=== PATIENT | male | born 1965 | race Caucasian/White ===

== ENCOUNTER → 2016-11-05 | Outpatient (CLI) | payer BC ==
[2016-11-05 08:46] LABS: MEAN CORPUSCULAR HEMOGLOBIN 32.3 pg (27.0-33.0); MEAN CORPUSCULAR HGB CONC 34.8 g/dl (32.0-36.5); MEAN CORPUSCULAR VOLUME 92.8 fl (80.0-96.0); RED CELL DISTRIBUTION WIDTH 13.2 % (11.5-14.5); WHITE BLOOD COUNT 8.3 K/mm3 (4.0-10.0)
[2016-11-05 09:20] LABS: ALBUMIN 4.1 GM/DL (3.2-5.2); ALBUMIN/GLOBULIN RATIO 1.24 (1.00-1.93); ALKALINE PHOSPHATASE 86 U/L (45-117); ALT/SGPT 43 U/L (12-78); ANION GAP 9 MEQ/L (8-16); AST/SGOT 28 U/L (15-37); BILIRUBIN,TOTAL 0.5 MG/DL (0.2-1.0); BLOOD UREA NITROGEN 16 MG/DL (7-18); CALCIUM LEVEL 8.7 MG/DL (8.5-10.1); CARBON DIOXIDE LEVEL 25 MEQ/L (21-32); CHLORIDE LEVEL 109 MEQ/L (98-107); CHOLESTEROL LEVEL 171 MG/DL (<200); CREATININE FOR GFR 0.91 MG/DL (0.70-1.30); GLOMERULAR FILTRATION RATE > 60.0 (>56); GLUCOSE, FASTING 107 MG/DL (70-105); POTASSIUM SERUM 4.2 MEQ/L (3.5-5.1); SODIUM LEVEL 143 MEQ/L (136-145); TOTAL PROTEIN 7.4 GM/DL (6.4-8.2); TRIGLYCERIDES LEVEL 226 MG/DL (<150)
--- NOTE | 2016-11-05 09:40 | REP ---
Chest two views HISTORY: Hypertension Comparison: 04/18/2005 The lungs are clear. The heart is normal in size. The pulmonary vasculature is normal in appearance. The bony structure is intact. IMPRESSION: No acute disease. Signed by Iggy Dalton MD 11/05/2016 09:31 A
--- NOTE | 2016-11-05 09:52 | REP ---
CERVICAL SPINE, EIGHT VIEWS: HISTORY: Hypertension. The cervical spine is visualized from C1 to the C6-7 level in the lateral radiographs. There is no acute fracture or subluxation. The C3-4 through C6-7 intervertebral discs are decreased in height consistent with disc degeneration. Osteophytes are present on C3-7. There is narrowing of the C5 and 6 neural foramina secondary to uncinate process hypertrophy. IMPRESSION: Degenerative change as described above. Signed by Iggy Dalton MD 11/05/2016 09:57 A
--- NOTE | 2016-11-05 09:54 | REP ---
BILATERAL SHOULDERS: HISTORY: Hypertension. RIGHT SHOULDER, THREE VIEWS: There is no acute fracture or dislocation. The joint spaces are normal in appearance. An osteophyte is present on the inferior glenoid. IMPRESSION: Degenerative change as described above. LEFT SHOULDER, FOUR VIEWS: There is no acute fracture or dislocation. The joint spaces are normal in appearance. IMPRESSION: There is no acute fracture or dislocation. Signed by Iggy Dalton MD 11/05/2016 09:57 A
--- NOTE | 2016-11-05 12:12 | ECGEPIP ---
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
== END ==
LOC: M LAB 08:07
PROVIDERS: ATTEND Family Medicine
DX: M50.30 Other cervical disc degeneration, unspecified cervical region (principal); I10 Essential (primary) hypertension; J44.9 Chronic obstructive pulmonary disease, unspecified
CPT/HCPCS: 36415; 71020; 72052; 73030; 80053; 80061; 83036; 84443; 85027; 93005; G0103

== ENCOUNTER → 2018-04-04 | Outpatient (CLI) | payer BC ==
[2018-04-04 07:15] LABS: HEMATOCRIT 50.1 % (42.0-52.0); HEMOGLOBIN 16.8 g/dl (13.5-17.5); MEAN CORPUSCULAR HEMOGLOBIN 31.5 pg (27.0-33.0); MEAN CORPUSCULAR HGB CONC 33.5 g/dl (32.0-36.5); MEAN CORPUSCULAR VOLUME 93.8 fl (80.0-96.0); PLATELET COUNT, AUTOMATED 234 10^3/uL (150-450); RED BLOOD COUNT 5.34 10^6/uL (4.30-6.10); WHITE BLOOD COUNT 8.5 10^3/uL (4.0-10.0)
[2018-04-04 07:39] LABS: HEMOGLOBIN A1c 6.1 %
[2018-04-04 07:48] LABS: ALBUMIN 3.9 GM/DL (3.2-5.2); ALT/SGPT 32 U/L (12-78); BILIRUBIN,TOTAL 0.3 MG/DL (0.2-1.0); BLOOD UREA NITROGEN 15 MG/DL (7-18); CALCIUM LEVEL 8.5 MG/DL (8.5-10.1); CARBON DIOXIDE LEVEL 26 MEQ/L (21-32); CHLORIDE LEVEL 106 MEQ/L (98-107); CHOLESTEROL LEVEL 150 MG/DL (<200); CREATININE FOR GFR 0.92 MG/DL (0.70-1.30); GLOMERULAR FILTRATION RATE > 60.0 (>56); GLUCOSE, FASTING 118 MG/DL (70-100); HDL CHOLESTEROL 24 MG/DL (>40); LDL CHOLESTEROL 57 MG/DL (<100); NON-HDL-C 126 MG/DL; POTASSIUM SERUM 4.5 MEQ/L (3.5-5.1); PROSTATIC SPECIFIC AG MONITOR 0.65 NG/ML (< 4.00); SODIUM LEVEL 140 MEQ/L (136-145); TOTAL PROTEIN 6.8 GM/DL (6.4-8.2); TRIGLYCERIDES LEVEL 343 MG/DL (<150)
[2018-04-04 09:28] LABS: TESTOSTERONE 179 NG/DL (241-827)
== END ==
LOC: M LAB 06:46
PROVIDERS: ATTEND Family Medicine
DX: E03.9 Hypothyroidism, unspecified (principal); I10 Essential (primary) hypertension

== ENCOUNTER → 2018-08-09 | Outpatient (CLI) | payer BC ==
[2018-08-09 06:50] LABS: HEMATOCRIT 50.9 % (42.0-52.0); HEMOGLOBIN 17.2 g/dl (13.5-17.5); MEAN CORPUSCULAR HEMOGLOBIN 31.6 pg (27.0-33.0); MEAN CORPUSCULAR HGB CONC 33.8 g/dl (32.0-36.5); MEAN CORPUSCULAR VOLUME 93.4 fl (80.0-96.0); PLATELET COUNT, AUTOMATED 236 10^3/uL (150-450); RED BLOOD COUNT 5.45 10^6/uL (4.30-6.10); WHITE BLOOD COUNT 8.8 10^3/uL (4.0-10.0)
[2018-08-09 07:12] LABS: HEMOGLOBIN A1c 5.7 %
--- NOTE | 2018-08-09 09:19 | REP ---
CERVICAL SPINE, EIGHT VIEWS: HISTORY: Osteoarthritis. COMPARISON: 11/05/2016. The cervical spine is visualized from C1 to the C6-7 level in the lateral radiographs. There is no acute fracture or subluxation. The C3-4 through C6-7 intervertebral discs are decreased in height consistent with disc degeneration. Osteophytes are present on C3-7. There is narrowing of the C4-6 neural foramina secondary to uncinate process hypertrophy. There is loss of the normal lordotic curve. IMPRESSION: Degenerative change as described above. Electronically Signed by Iggy Dalton MD 08/09/2018 09:21 A
[2018-08-09 09:23] LABS: ALBUMIN 3.6 GM/DL (3.2-5.2); ALT/SGPT 46 U/L (12-78); BILIRUBIN,TOTAL 0.4 MG/DL (0.2-1.0); BLOOD UREA NITROGEN 15 MG/DL (7-18); CALCIUM LEVEL 8.1 MG/DL (8.5-10.1); CARBON DIOXIDE LEVEL 27 MEQ/L (21-32); CHLORIDE LEVEL 109 MEQ/L (98-107); CHOLESTEROL LEVEL 196 MG/DL (<200); CHOLESTEROL RISK RATIO 9.333 (<5); CREATININE FOR GFR 0.85 MG/DL (0.70-1.30); GLOMERULAR FILTRATION RATE > 60.0 (>56); GLUCOSE, FASTING 127 MG/DL (70-100); HDL CHOLESTEROL 21 MG/DL (>40); NON-HDL-C 175 MG/DL; POTASSIUM SERUM 4.5 MEQ/L (3.5-5.1); PROSTATIC SPECIFIC AG MONITOR 0.46 NG/ML (< 4.00); SODIUM LEVEL 141 MEQ/L (136-145); TRIGLYCERIDES LEVEL 1112 MG/DL (<150)
[2018-08-09 11:36] LABS: TESTOSTERONE 166 NG/DL (241-827)
== END ==
LOC: M LAB 06:28
PROVIDERS: ATTEND Family Medicine
DX: I10 Essential (primary) hypertension (principal); E03.9 Hypothyroidism, unspecified; N40.0 Benign prostatic hyperplasia without lower urinary tract symptoms; M50.31 Other cervical disc degeneration, high cervical region; M50.321 Other cervical disc degeneration at C4-C5 level; M50.322 Other cervical disc degeneration at C5-C6 level; M50.323 Other cervical disc degeneration at C6-C7 level

== ENCOUNTER 2018-11-03 06:22 | Emergency (ER) | payer BC ==
[~2018-11-03] VITALS: Ht 180.3 cm; Wt 105.1 kg
[2018-11-03] MEDS ORDERED: NS 1,000 ML IV ONE (07:00)
[2018-11-03] MEDS ORDERED: KETOROLAC 30 MG/ML VIAL (J1885) IV ONE (07:00)
[2018-11-03 07:43] LABS: BASO # 0.1 10^3/uL (0.0-0.2); BASO % 0.3 % (0.0-1.0); EOS % 0.1 % (0.0-3.0); HEMATOCRIT 48.5 % (42.0-52.0); HEMOGLOBIN 16.7 g/dl (13.5-17.5); LYMPH # 1.4 10^3/uL (1.5-4.5); LYMPH % 8.4 % (24.0-44.0); MEAN CORPUSCULAR HEMOGLOBIN 31.6 pg (27.0-33.0); MEAN CORPUSCULAR HGB CONC 34.4 g/dl (32.0-36.5); MEAN CORPUSCULAR VOLUME 91.7 fl (80.0-96.0); MONO # 1.3 10^3/uL (0.0-0.8); MONO % 7.4 % (0.0-5.0); NEUTROPHILS # 14.1 10^3/uL (1.8-7.7); NEUTROPHILS % 83.1 % (36.0-66.0); PLATELET COUNT, AUTOMATED 227 10^3/uL (150-450); RED BLOOD COUNT 5.29 10^6/uL (4.30-6.10)
[2018-11-03 07:51] LABS: ALBUMIN 3.5 GM/DL (3.2-5.2); ALT/SGPT 23 U/L (12-78); BILIRUBIN,DIRECT 0.4 MG/DL (0.0-0.2); BILIRUBIN,TOTAL 1.2 MG/DL (0.2-1.0); BLOOD UREA NITROGEN 11 MG/DL (7-18); CALCIUM LEVEL 9.3 MG/DL (8.5-10.1); CARBON DIOXIDE LEVEL 26 MEQ/L (21-32); CHLORIDE LEVEL 103 MEQ/L (98-107); CREATININE FOR GFR 0.88 MG/DL (0.70-1.30); GLOMERULAR FILTRATION RATE > 60.0 (>56); GLUCOSE, FASTING 125 MG/DL (70-100); SODIUM LEVEL 138 MEQ/L (136-145); TOTAL PROTEIN 6.9 GM/DL (6.4-8.2)
[2018-11-03 07:52] LABS: LIPASE 97 U/L (73-393)
[2018-11-03] MEDS ORDERED: ISOVUE-370 76% 100ML VIAL (Q9967) As Ordered ONE (07:55)
[2018-11-03] MEDS ORDERED: CIPROFLOXACIN 500 MG TAB PO ONE (08:30)
[2018-11-03] MEDS ORDERED: metroNIDAZOLE (FLAGYL) 500 MG TAB PO ONE (08:30)
[2018-11-03] MEDS ORDERED: CIPR-249 PO (09:24)
[2018-11-03] MEDS ORDERED: FLAG500T PO (09:24)
[2018-11-03 09:36] VITALS: BP 117/65
--- NOTE | 2018-11-03 10:51 | REP ---
CT of the abdomen and pelvis with IV contrast, without bowel contrast: There are no comparisons. Studies performed for bilateral lower quadrant pain. The visualized lung rios are unremarkable. There is hepato steatosis. The hepatic parenchyma is otherwise unremarkable. The gallbladder, pancreas and spleen are unremarkable. The adrenals, kidneys and abdominal aorta are unremarkable. There is no retroperitoneal adenopathy or mass. There are scattered diverticula in the descending colon and sigmoid colon. In the proximal sigmoid colon. There is pericolonic phlegmon and a few tiny collections of extraluminal air / gas, compatible with contained perforation, suggestive of acute diverticulitis. There is no pneumoperitoneum. There is no ascites. Pelvis: The terminal ileum and appendix are unremarkable. There is no ascites or adenopathy. The bladder is unremarkable. Impression: Acute diverticulitis of the proximal sigmoid colon. No pneumoperitoneum or ascites. Hepato steatosis. Electronically Signed by Armin Degroot MD 11/03/2018 09:32 A
== END 2018-11-03 09:39 | disposition home or self-care (01) ==
LOC: M ED 06:22
DX: K57.92 Diverticulitis of intestine, part unspecified, without perforation or abscess without bleeding (principal); B96.7 Clostridium perfringens [C. perfringens] as the cause of diseases classified elsewhere; E78.5 Hyperlipidemia, unspecified; F17.210 Nicotine dependence, cigarettes, uncomplicated
CPT/HCPCS: 74177; 80048; 80076; 81001; 83605; 83690; 85025; 87507; 96361; 96374; 99284; J1885; Q9967

== ENCOUNTER → 2018-11-14 | Outpatient (CLI) | payer BC ==
[~2018-11-14] MED LIST: CIPR-249 PO; FLAG500T PO
[2018-11-14 07:42] LABS: HEMATOCRIT 51.7 % (42.0-52.0); HEMOGLOBIN 17.5 g/dl (13.5-17.5); MEAN CORPUSCULAR HEMOGLOBIN 31.5 pg (27.0-33.0); MEAN CORPUSCULAR HGB CONC 33.8 g/dl (32.0-36.5); PLATELET COUNT, AUTOMATED 328 10^3/uL (150-450); RED BLOOD COUNT 5.56 10^6/uL (4.30-6.10)
[2018-11-14 08:08] LABS: HEMOGLOBIN A1c 5.8 %
[2018-11-14 08:17] LABS: ALBUMIN 3.5 GM/DL (3.2-5.2); ALT/SGPT 30 U/L (12-78); BILIRUBIN,TOTAL 0.2 MG/DL (0.2-1.0); BLOOD UREA NITROGEN 15 MG/DL (7-18); CALCIUM LEVEL 8.8 MG/DL (8.5-10.1); CARBON DIOXIDE LEVEL 27 MEQ/L (21-32); CHLORIDE LEVEL 109 MEQ/L (98-107); CHOLESTEROL LEVEL 161 MG/DL (<200); CREATININE FOR GFR 0.92 MG/DL (0.70-1.30); GLOMERULAR FILTRATION RATE > 60.0 (>56); GLUCOSE, FASTING 123 MG/DL (70-100); HDL CHOLESTEROL 23 MG/DL (>40); NON-HDL-C 138 MG/DL; POTASSIUM SERUM 4.7 MEQ/L (3.5-5.1); SODIUM LEVEL 140 MEQ/L (136-145); TOTAL PROTEIN 6.6 GM/DL (6.4-8.2); TRIGLYCERIDES LEVEL 756 MG/DL (<150)
[2018-11-14 08:18] LABS: TESTOSTERONE 216 NG/DL (241-827)
== END ==
LOC: M LAB 07:02
PROVIDERS: ATTEND Family Medicine
DX: I10 Essential (primary) hypertension (principal); R53.83 Other fatigue

== ENCOUNTER 2020-08-17 08:45 | Emergency (ER) | payer BC ==
[~2020-08-17] VITALS: Ht 180.3 cm; Wt 103.2 kg
--- NOTE | 2020-08-17 09:30 | REP ---
INDICATION: CHEST PAIN. COMPARISON: 11/05/2016. TECHNIQUE: Single portable AP view of the chest was performed. FINDINGS: There is no acute infiltrate or pulmonary edema. Lungs are clear. The heart is not significantly enlarged. The mediastinal silhouette is unremarkable. The visualized osseous structures are intact. IMPRESSION: No acute pulmonary disease. <Electronically signed by Armin Porter > 08/17/20 0927
[2020-08-17 09:51] LABS: BASO # 0.1 10^3/uL (0.0-0.2); BASO % 0.9 % (0.0-1.0); EOS # 0.2 10^3/uL (0.0-0.5); EOS % 2.7 % (0.0-3.0); HEMATOCRIT 53.3 % (42.0-52.0); LYMPH # 2.8 10^3/uL (1.5-5.0); LYMPH % 31.8 % (24.0-44.0); MEAN CORPUSCULAR HEMOGLOBIN 31.1 pg (27.0-33.0); MEAN CORPUSCULAR HGB CONC 33.8 g/dl (32.0-36.5); MEAN CORPUSCULAR VOLUME 92.1 fl (80.0-96.0); MONO # 0.7 10^3/uL (0.0-0.8); MONO % 7.8 % (2.0-8.0); NEUTROPHILS % 56.2 % (36.0-66.0); PLATELET COUNT, AUTOMATED 247 10^3/uL (150-450); RED BLOOD COUNT 5.79 10^6/uL (4.30-6.10); WHITE BLOOD COUNT 8.9 10^3/uL (4.0-10.0)
[2020-08-17 10:08] LABS: BLOOD UREA NITROGEN 14 MG/DL (7-18); CALCIUM LEVEL 8.7 MG/DL (8.5-10.1); CARBON DIOXIDE LEVEL 28 MEQ/L (21-32); CHLORIDE LEVEL 111 MEQ/L (98-107); CREATININE FOR GFR 0.83 MG/DL (0.70-1.30); GLOMERULAR FILTRATION RATE > 60.0 (>56); GLUCOSE, FASTING 103 MG/DL (70-100); POTASSIUM SERUM 4.4 MEQ/L (3.5-5.1); SODIUM LEVEL 142 MEQ/L (136-145)
[2020-08-17 10:41] LABS: ALT/SGPT 30 U/L (12-78); BILIRUBIN,DIRECT 0.1 MG/DL (0.0-0.2); BILIRUBIN,TOTAL 0.4 MG/DL (0.2-1.0); LIPASE 171 U/L (73-393); TOTAL PROTEIN 7.2 GM/DL (6.4-8.2)
[2020-08-17] MEDS ORDERED: ISOVUE-370 76% 100ML VIAL As Ordered ONE (10:53)
--- NOTE | 2020-08-17 11:52 | REP ---
INDICATION: r/o PE. COMPARISON: None. TECHNIQUE: CT angiogram chest performed following the intravenous administration of 100 cc of Isovue 370. Sagittal and coronal reconstruction images are performed. FINDINGS: Lungs: There is no evidence of acute infiltrate. There are mild scattered interstitial fibrotic changes bilaterally. Mediastinum: No adenopathy. Pulmonary arteries: No evidence of pulmonary embolism. Thea: No adenopathy. Axilla: No adenopathy. Pleura: No effusion. Heart: Not enlarged. Thoracic aorta: No aneurysm or dissection. There is a small hiatal hernia. Visualized osseous structures: Unremarkable. IMPRESSION: No CT evidence of pulmonary embolism. No infiltrate seen. <Electronically signed by Armin Porter > 08/17/20 2037
--- NOTE | 2020-08-17 12:02 | REP ---
INDICATION: upper abdominal pain COMPARISON: 11/03/2018. TECHNIQUE: CT Scan of the abdomen and pelvis was performed with intravenous administration of 100 cc of Isovue 370, without oral contrast. Sagittal and coronal reconstruction images are performed. FINDINGS: Liver: Normal Gallbladder: Unremarkable. Spleen: Normal. Adrenals: Normal. Pancreas: Normal. Kidneys: Few subcentimeter hypodensities in the lower pole the right kidney probably represent tiny cysts. Small and large bowel: Unremarkable. Free fluid: None. Abdominal aorta: No aneurysm or dissection. Adenopathy: None. Appendix: Not inflamed. Osseous structures: There are degenerative changes of the spine without compression deformity. Pelvis: No mass. IMPRESSION: Negative CT abdomen and pelvis. <Electronically signed by Armin Porter > 08/17/20 0767
[2020-08-17] MEDS ORDERED: PANT40TA29 PO (13:01)
[2020-08-17 13:17] VITALS: BP 130/91
--- NOTE | 2020-08-17 17:33 | ECGEPIP ---
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
== END 2020-08-17 13:19 | disposition home or self-care (01) ==
LOC: M ED 08:45
DX: R07.89 Other chest pain (principal); R10.13 Epigastric pain; F17.210 Nicotine dependence, cigarettes, uncomplicated; Z82.49 Family history of ischemic heart disease and other diseases of the circulatory system
CPT/HCPCS: 71045; 71275; 74177; 80048; 80076; 83690; 84484; 85025; 93005; 93041; 94760; 99284; Q9967

== ENCOUNTER → 2021-05-14 | Outpatient (CLI) | payer BC ==
[~2021-05-14] MED LIST changes: +PANT40TA29 PO
[2021-05-14 11:13] LABS: HEMATOCRIT 50.8 % (42.0-52.0); HEMOGLOBIN 17.2 g/dl (13.5-17.5); MEAN CORPUSCULAR HEMOGLOBIN 31.1 pg (27.0-33.0); MEAN CORPUSCULAR HGB CONC 33.9 g/dl (32.0-36.5); MEAN CORPUSCULAR VOLUME 91.9 fl (80.0-96.0); PLATELET COUNT, AUTOMATED 231 10^3/uL (150-450); RED BLOOD COUNT 5.53 10^6/uL (4.30-6.10); WHITE BLOOD COUNT 9.5 10^3/uL (4.0-10.0)
[2021-05-14 12:00] LABS: HEMOGLOBIN A1c 5.7 %
[2021-05-14 12:52] LABS: BLOOD UREA NITROGEN 20 MG/DL (7-18); GLUCOSE, FASTING 89 MG/DL (70-100)
[2021-05-14 12:53] LABS: ALT/SGPT 33 IU/L (0-32); BILIRUBIN,TOTAL 0.7 MG/DL (0.2-1.0); CALCIUM LEVEL 8.8 MG/DL (8.5-10.1); CARBON DIOXIDE LEVEL 25 mmol/L (20-29); CHLORIDE LEVEL 110 MEQ/L (98-107); CHOLESTEROL LEVEL 159 MG/DL (<200); CREATININE FOR GFR 0.94 MG/DL (0.70-1.30); GLOMERULAR FILTRATION RATE > 60.0 (>56); POTASSIUM SERUM 4.4 MEQ/L (3.5-5.1); SODIUM LEVEL 143 MEQ/L (136-145); TRIGLYCERIDES LEVEL 247 MG/DL (<150)
[2021-05-14 12:54] LABS: ALBUMIN 3.9 GM/DL (3.2-5.2); PROSTATIC SPECIFIC AG MONITOR 0.39 NG/ML (< 4.00)
[2021-05-14 13:01] LABS: CHOLESTEROL RISK RATIO 5.888 (<5); HDL CHOLESTEROL 27 MG/DL (>40); LDL CHOLESTEROL 82.6 MG/DL (<100); NON-HDL-C 132 MG/DL
[2021-05-17 13:03] LABS: TESTOSTERONE 150 NG/DL (241-827)
== END ==
LOC: M RAD 10:02
PROVIDERS: ATTEND Family Medicine
DX: I10 Essential (primary) hypertension (principal); R53.83 Other fatigue; E03.9 Hypothyroidism, unspecified; I49.8 Other specified cardiac arrhythmias; I49.1 Atrial premature depolarization

== ENCOUNTER → 2021-10-13 | Outpatient (CLI) | payer OTHER | LOC: M RAD 08:11 | PROVIDERS: ATTEND Physician Assistant Medical | DX: J44.9 Chronic obstructive pulmonary disease, unspecified (principal) ==

== ENCOUNTER → 2022-09-20 | Outpatient (CLI) | payer OTHER ==
[2022-09-20 08:40] LABS: HEMATOCRIT 52.1 % (42.0-52.0); HEMOGLOBIN 17.7 g/dl (13.5-17.5); MEAN CORPUSCULAR HEMOGLOBIN 31.3 pg (27.0-33.0); PLATELET COUNT, AUTOMATED 215 10^3/uL (150-450); RED BLOOD COUNT 5.66 10^6/uL (4.30-6.10); WHITE BLOOD COUNT 7.4 10^3/uL (4.0-10.0)
[2022-09-20 08:56] LABS: HEMOGLOBIN A1c 5.7 % (4.0-6.0)
[2022-09-20 09:03] LABS: ALBUMIN 3.9 G/DL (3.2-5.2); ALKALINE PHOSPHATASE 92 U/L (46-116); ALT/SGPT 18 U/L (7.0-40); AST/SGOT < 8 U/L (<34); BILIRUBIN,TOTAL 0.4 MG/DL (0.3-1.2); BLOOD UREA NITROGEN 17 MG/DL (9-23); CALCIUM LEVEL 8.8 MG/DL (8.5-10.1); CARBON DIOXIDE LEVEL 27 MMOL/L (20-31); CHLORIDE LEVEL 109 MMOL/L (98-107); CHOLESTEROL LEVEL 145 MG/DL (<200); CHOLESTEROL RISK RATIO 5.96 (<5); CREATININE FOR GFR 0.91 MG/DL (0.70-1.30); GLOMERULAR FILTRATION RATE > 60.0 (>56); GLUCOSE, FASTING 127 MG/DL (60-100); HDL CHOLESTEROL 24.3 MG/DL (>40); LDL CHOLESTEROL 66.1 MG/DL (<100); NON-HDL-C 120.7 MG/DL; POTASSIUM SERUM 4.4 MMOL/L (3.5-5.1); PROSTATIC SPECIFIC AG MONITOR 0.35 NG/ML (< 4.00); SODIUM LEVEL 140 MMOL/L (136-145); TOTAL PROTEIN 6.6 G/DL (5.7-8.2); TRIGLYCERIDES LEVEL 273 MG/DL (<150)
[2022-09-20 09:07] LABS: THYROID STIMULATING HORMONE 1.834 uIU/ML (0.55-4.78); TOTAL 25(OH) VITAMIN D 19.7 NG/ML (20.0-100.0)
[2022-09-20 09:08] LABS: TESTOSTERONE 148 NG/DL (241-827)
== END ==
LOC: M RAD 07:46
PROVIDERS: ATTEND Family Medicine
DX: I10 Essential (primary) hypertension (principal); R53.83 Other fatigue; E03.9 Hypothyroidism, unspecified

== ENCOUNTER → 2022-11-10 | Outpatient (CLI) | payer OTHER ==
[2022-11-10 09:07] LABS: HEMATOCRIT 55.7 % (42.0-52.0); HEMOGLOBIN 18.4 g/dl (13.5-17.5); MEAN CORPUSCULAR HEMOGLOBIN 30.7 pg (27.0-33.0); PLATELET COUNT, AUTOMATED 233 10^3/uL (150-450); RED BLOOD COUNT 5.99 10^6/uL (4.30-6.10); WHITE BLOOD COUNT 8.9 10^3/uL (4.0-10.0)
[2022-11-10 09:21] LABS: HEMOGLOBIN A1c 5.8 % (4.0-6.0)
[2022-11-10 09:37] LABS: ALBUMIN 3.9 G/DL (3.2-5.2); ALKALINE PHOSPHATASE 94 U/L (46-116); ALT/SGPT 26 U/L (7.0-40); AST/SGOT 18 U/L (<34); BILIRUBIN,TOTAL 0.5 MG/DL (0.3-1.2); BLOOD UREA NITROGEN 16 MG/DL (9-23); CARBON DIOXIDE LEVEL 28 MMOL/L (20-31); CHLORIDE LEVEL 105 MMOL/L (98-107); CHOLESTEROL LEVEL 121 MG/DL (<200); CHOLESTEROL RISK RATIO 4.87 (<5); CREATININE FOR GFR 0.96 MG/DL (0.70-1.30); GLOMERULAR FILTRATION RATE > 60.0 (>56); GLUCOSE, FASTING 116 MG/DL (60-100); HDL CHOLESTEROL 24.8 MG/DL (>40); LDL CHOLESTEROL 62.2 MG/DL (<100); NON-HDL-C 96.2 MG/DL; POTASSIUM SERUM 4.4 MMOL/L (3.5-5.1); PROSTATIC SPECIFIC AG MONITOR 0.33 NG/ML (< 4.00); SODIUM LEVEL 139 MMOL/L (136-145); TESTOSTERONE 103 NG/DL (241-827); THYROID STIMULATING HORMONE 2.416 uIU/ML (0.55-4.78); TRIGLYCERIDES LEVEL 170 MG/DL (<150)
== END ==
LOC: M LAB 07:48
PROVIDERS: ATTEND Family Medicine
DX: I10 Essential (primary) hypertension (principal); R53.83 Other fatigue; E03.9 Hypothyroidism, unspecified

== ENCOUNTER → 2023-07-20 | Outpatient (CLI) | payer OTHER ==
[2023-07-20 08:15] LABS: HEMATOCRIT 53.1 % (42.0-52.0); HEMOGLOBIN 18.5 g/dl (13.5-17.5); MEAN CORPUSCULAR HEMOGLOBIN 32.1 pg (27.0-33.0); MEAN CORPUSCULAR HGB CONC 34.8 g/dl (32.0-36.5); MEAN CORPUSCULAR VOLUME 92.2 fl (80.0-96.0); PLATELET COUNT, AUTOMATED 219 10^3/uL (150-450); RED BLOOD COUNT 5.76 10^6/uL (4.30-6.10); WHITE BLOOD COUNT 6.7 10^3/uL (4.0-10.0)
[2023-07-20 08:34] LABS: HEMOGLOBIN A1c 5.7 % (4.0-6.0)
[2023-07-20 08:39] LABS: ALKALINE PHOSPHATASE 89 U/L (46-116); ALT/SGPT 29 U/L (7.0-40); AST/SGOT 21 U/L (<34); BILIRUBIN,TOTAL 0.6 MG/DL (0.3-1.2); BLOOD UREA NITROGEN 13 MG/DL (9-23); CALCIUM LEVEL 9.1 MG/DL (8.3-10.6); CARBON DIOXIDE LEVEL 30 MMOL/L (20-31); CHLORIDE LEVEL 104 MMOL/L (98-107); CHOLESTEROL LEVEL 119 MG/DL (<200); CHOLESTEROL RISK RATIO 4.91 (<5); GLOMERULAR FILTRATION RATE > 60.0 (>49); GLUCOSE, FASTING 114 MG/DL (74-106); HDL CHOLESTEROL 24.2 MG/DL (>40); LDL CHOLESTEROL 53.6 MG/DL (<100); NON-HDL-C 94.8 MG/DL; POTASSIUM SERUM 4.2 MMOL/L (3.5-5.1); PROSTATIC SPECIFIC AG MONITOR 0.27 NG/ML (< 4.00); SODIUM LEVEL 138 MMOL/L (136-145); TRIGLYCERIDES LEVEL 206 MG/DL (<150)
[2023-07-20 08:41] LABS: TESTOSTERONE 118 NG/DL (241-827)
== END ==
LOC: M RAD 07:17
PROVIDERS: ATTEND Family Medicine
DX: I10 Essential (primary) hypertension (principal); J44.9 Chronic obstructive pulmonary disease, unspecified; R53.83 Other fatigue; I49.8 Other specified cardiac arrhythmias; I45.10 Unspecified right bundle-branch block

== ENCOUNTER → 2023-11-14 | Outpatient (CLI) | payer OTHER ==
[2023-11-14 08:31] LABS: MEAN CORPUSCULAR HEMOGLOBIN 32.6 pg (27.0-33.0); MEAN CORPUSCULAR HGB CONC 33.9 g/dl (32.0-36.5); MEAN CORPUSCULAR VOLUME 96.1 fl (80.0-96.0); PLATELET COUNT, AUTOMATED 203 10^3/uL (150-450); RED BLOOD COUNT 6.22 10^6/uL (4.30-6.10); WHITE BLOOD COUNT 6.9 10^3/uL (4.0-10.0)
[2023-11-14 08:34] LABS: HEMOGLOBIN 20.3 g/dl (13.5-17.5)
[2023-11-14 08:35] LABS: HEMATOCRIT 59.8 % (42.0-52.0)
[2023-11-14 09:06] LABS: HEMOGLOBIN A1c 5.5 % (4.0-6.0)
[2023-11-14 09:10] LABS: ALBUMIN 4.1 G/DL (3.2-5.2); ALKALINE PHOSPHATASE 84 U/L (46-116); ALT/SGPT 22 U/L (7.0-40); AST/SGOT 18 U/L (<34); BILIRUBIN,TOTAL 0.5 MG/DL (0.3-1.2); BLOOD UREA NITROGEN 12 MG/DL (9-23); CALCIUM LEVEL 9.1 MG/DL (8.3-10.6); CARBON DIOXIDE LEVEL 30 MMOL/L (20-31); CHLORIDE LEVEL 106 MMOL/L (98-107); CHOLESTEROL LEVEL 105 MG/DL (<200); CHOLESTEROL RISK RATIO 4.05 (<5); CREATININE FOR GFR 1.16 MG/DL (0.70-1.30); GLOMERULAR FILTRATION RATE > 60.0 (>49); GLUCOSE, FASTING 116 MG/DL (74-106); HDL CHOLESTEROL 25.9 MG/DL (>40); LDL CHOLESTEROL 57.5 MG/DL (<100); NON-HDL-C 79.1 MG/DL; POTASSIUM SERUM 4.5 MMOL/L (3.5-5.1); PROSTATIC SPECIFIC AG MONITOR 0.45 NG/ML (< 4.00); SODIUM LEVEL 137 MMOL/L (136-145); TOTAL PROTEIN 7.2 G/DL (5.7-8.2); TRIGLYCERIDES LEVEL 108 MG/DL (<150)
[2023-11-14 09:12] LABS: TESTOSTERONE 129 NG/DL (241-827); THYROID STIMULATING HORMONE 1.844 uIU/ML (0.55-4.78)
== END ==
LOC: M LAB 08:04
PROVIDERS: ATTEND Family Medicine
DX: I10 Essential (primary) hypertension (principal); R53.83 Other fatigue

== ENCOUNTER → 2024-01-24 | Outpatient (CLI) | payer OTHER ==
[2024-01-24 08:34] LABS: HEMATOCRIT 59.9 % (42.0-52.0); MEAN CORPUSCULAR HGB CONC 33.4 g/dl (32.0-36.5); MEAN CORPUSCULAR VOLUME 92.7 fl (80.0-96.0); PLATELET COUNT, AUTOMATED 208 10^3/uL (150-450); RED BLOOD COUNT 6.46 10^6/uL (4.30-6.10); WHITE BLOOD COUNT 7.7 10^3/uL (4.0-10.0)
== END ==
LOC: M LAB 07:20
PROVIDERS: ATTEND Nurse Practitioner Family
DX: E29.1 Testicular hypofunction (principal)

== ENCOUNTER → 2024-03-10 | Outpatient (CLI) | payer OTHER ==
[2024-03-10 09:24] LABS: HEMATOCRIT 57.8 % (42.0-52.0); HEMOGLOBIN 19.6 g/dl (13.5-17.5); MEAN CORPUSCULAR HEMOGLOBIN 31.3 pg (27.0-33.0); MEAN CORPUSCULAR HGB CONC 33.9 g/dl (32.0-36.5); MEAN CORPUSCULAR VOLUME 92.2 fl (80.0-96.0); PLATELET COUNT, AUTOMATED 186 10^3/uL (150-450); RED BLOOD COUNT 6.27 10^6/uL (4.30-6.10); WHITE BLOOD COUNT 6.7 10^3/uL (4.0-10.0)
[2024-03-10 09:45] LABS: PROSTATIC SPECIFIC AG MONITOR 0.49 NG/ML (< 4.00)
[2024-03-10 09:48] LABS: ALBUMIN 4.1 G/DL (3.2-5.2); ALKALINE PHOSPHATASE 81 U/L (40-129); ALT/SGPT 21 U/L (7.0-40); AST/SGOT 17 U/L (<34); BILIRUBIN,TOTAL 0.8 MG/DL (0.3-1.2); BLOOD UREA NITROGEN 14 MG/DL (9-23); CALCIUM LEVEL 9.6 MG/DL (8.3-10.6); CARBON DIOXIDE LEVEL 29 MMOL/L (20-31); CHLORIDE LEVEL 105 MMOL/L (98-107); CHOLESTEROL LEVEL 144 MG/DL (<200); CHOLESTEROL RISK RATIO 5.43 (<5); CREATININE FOR GFR 1.03 MG/DL (0.70-1.30); GLOMERULAR FILTRATION RATE > 60.0 (>49); GLUCOSE, FASTING 111 MG/DL (74-106); HDL CHOLESTEROL 26.5 MG/DL (>40); LDL CHOLESTEROL 84.1 MG/DL (<100); NON-HDL-C 117.5 MG/DL; POTASSIUM SERUM 4.5 MMOL/L (3.5-5.1); SODIUM LEVEL 141 MMOL/L (136-145); TOTAL PROTEIN 7.1 G/DL (5.7-8.2); TRIGLYCERIDES LEVEL 167 MG/DL (<150)
[2024-03-10 09:49] LABS: THYROID STIMULATING HORMONE 2.414 uIU/ML (0.55-4.78)
[2024-03-10 09:50] LABS: HEMOGLOBIN A1c 5.8 % (4.0-6.0)
[2024-03-10 09:51] LABS: TESTOSTERONE 110 NG/DL (241-827)
== END ==
LOC: M LAB 07:07
PROVIDERS: ATTEND Family Medicine
DX: I10 Essential (primary) hypertension (principal); R53.83 Other fatigue; E03.9 Hypothyroidism, unspecified

== ENCOUNTER 2024-04-28 13:00 | Emergency (ER) | payer OTHER, SELFPAY ==
[~2024-04-28] VITALS: Ht 177.8 cm; Wt 109.4 kg
[2024-04-28 13:03] VITALS: BP 162/82; TEMP 96.2; O2SAT 98
== END 2024-04-28 16:50 | disposition left against medical advice (07) ==
LOC: M ED 13:00
DX: Z53.21 Procedure and treatment not carried out due to patient leaving prior to being seen by health care provider (principal)

== ENCOUNTER → 2024-04-29 | Outpatient (CLI) | payer BC | LOC: M RAD 13:42 | PROVIDERS: ATTEND Family Medicine | DX: J44.9 Chronic obstructive pulmonary disease, unspecified (principal); R09.1 Pleurisy ==

== ENCOUNTER 2024-09-27 15:37 | Emergency (ER) | payer BC ==
[~2024-09-27] VITALS: Ht 177.8 cm; Wt 108.6 kg
[2024-09-27 15:41] VITALS: TEMP 97.4
[2024-09-27] MEDS: BOOSTRIX VACCINE (TETANUS/DIPHTH/ACEL. PERTUSSIS) 0.5 ML SYR IM.IMMUN ONE (17:00)
[2024-09-27] MEDS: LIDOCAINE W/EPINEPHrine 1% 20 ML VIAL SC ONE (17:40)
[2024-09-27] MEDS: NEOSPORIN OINT 0.9 GM PKT TOP ONE (17:40)
[2024-09-27] MEDS ORDERED: BACI500O8 TOP (18:13)
[2024-09-27 18:21] VITALS: BP 138/82; O2SAT 97
== END 2024-09-27 18:22 | disposition home or self-care (01) ==
LOC: M ED 15:37
DX: S41.112A Laceration without foreign body of left upper arm, initial encounter (principal); Y92.019 Unspecified place in single-family (private) house as the place of occurrence of the external cause; Y93.9 Activity, unspecified; Y99.9 Unspecified external cause status; Z79.2 Long term (current) use of antibiotics; Z79.899 Other long term (current) drug therapy; Z23 Encounter for immunization

== ENCOUNTER 2024-10-07 13:13 | Emergency (ER) | payer BC ==
[~2024-10-07] VITALS: Ht 177.8 cm; Wt 105.3 kg
[~2024-10-07 13:13] MED LIST changes: +BACI500O8 TOP
[2024-10-07 15:00] VITALS: BP 141/78; TEMP 97.9; O2SAT 95
== END 2024-10-07 15:02 | disposition home or self-care (01) ==
LOC: M ED 13:13
DX: Z48.02 Encounter for removal of sutures (principal); Z79.1 Long term (current) use of non-steroidal anti-inflammatories (NSAID); Z79.899 Other long term (current) drug therapy